=== PATIENT | male | born 1945 | race Hispanic/Latino ===

== ENCOUNTER 2018-10-10 18:42 | Emergency (ER) | payer MEDICARE ==
[~2018-10-10 18:42] MED LIST: Sodium Chloride Irrig Solution 250 ML BOT ONE
[2018-10-10] MEDS ORDERED: Lidocaine 2% 20 ml MDV ONE (19:02)
[2018-10-10] MEDS ORDERED: Adacel (T-DAP) 0.5 ML SYRINGE ONE (19:27)
[2018-10-10] MEDS ORDERED: Bacitracin Zinc 1 Packet ONE (19:39)
== END 2018-10-10 19:53 | disposition home or self-care (01) ==
LOC: MADERS 18:42
DX: S61.210A Laceration without foreign body of right index finger without damage to nail, initial encounter (principal); E11.9 Type 2 diabetes mellitus without complications; K21.9 Gastro-esophageal reflux disease without esophagitis; Z79.84 Long term (current) use of oral hypoglycemic drugs; Z79.899 Other long term (current) drug therapy; X58.XXXA Exposure to other specified factors, initial encounter
CPT/HCPCS: 12001; 90471; 90715; J2001